=== PATIENT | female | born 1990 | race Two or more races ===

== ENCOUNTER 2023-06-16 21:53 | Emergency (ER) | payer OTHER ==
[~2023-06-16] VITALS: Ht 167.6 cm; Wt 68.0 kg
[2023-06-17 00:22] LABS: URINE APPEARANCE Clear; URINE BILIRRUBIN Negative (NEGATIVE); URINE BLOOD Small; URINE COLOR Yellow; URINE GLUCOSE Negative (NEGATIVE); URINE LEUKOCYTE Negative; URINE NITRATE Negative; URINE PROTEIN Negative (NEGATIVE)
[2023-06-17 00:25] LABS: URINE RBC 12.2 uL (0.0-20.8); URINE WBC 7.7 uL (0.0-23.2)
[2023-06-17 00:26] LABS: HEMATOCRIT 34.7 % (36.0-45.00); HEMOGLOBIN 11.8 g/dL (12.0-15.00); MEAN CELL VOLUME 87.4 fL (80.00-100.00); MEAN CORPUSCULAR HEMOGLOBIN 29.7 pg (27.00-32.0); PLATELET COUNT 323 K/uL (150-450); RED BLOOD COUNT 3.97 M/uL (4.00-6.00); RED CELL DISTRIBUTION WIDTH 13.9 % (11.5-14.5)
[2023-06-17 00:32] LABS: INR 0.95; PARTIAL THROMBOPLASTIN TIME 26.8 SECONDS (22.0-34.0)
== END 2023-06-17 01:18 | disposition home or self-care (01) ==
LOC: ER 21:53
PROVIDERS: General Practice
DX: O20.8 Other hemorrhage in early pregnancy (principal); Z3A.12 12 weeks gestation of pregnancy